=== PATIENT | male | born 2000 | race Two or more races ===

== ENCOUNTER 2024-12-30 21:13 | Emergency (ER) | payer MEDICAID, SELFPAY ==
[2024-12-30 21:50] VITALS: BP 120/75; PULSE 89; RESP 18; TEMP 36.9; O2SAT 97
--- NOTE | 2024-12-30 22:34 | PD.EDRME ---
Rapid Medical Screening Exam RME Arrival date/time: 12/30/24 21:13 Chief Complaint: Skin/Abscess/Foreign Body Time Seen by Provider: 12/30/24 22:11 Vital signs: Vital Signs Temperature 98.4 F 12/30/24 21:50 Pulse Rate 89 12/30/24 21:50 Respiratory Rate 18 12/30/24 21:50 Blood Pressure 120/75 12/30/24 21:50 Pulse Oximetry (%) 97 12/30/24 21:50 Oxygen Delivery Method Room Air 12/30/24 21:50 Vital signs reviewed by provider: Yes RME Narrative: 24-year-old male presents to the ED with a complaint of dehydration and rash. Patient states that he has been drinking water. He is feeling extreme fatigue and weakness. He states he is homeless and has not been drinking alcohol or doing any illicit drugs. He states he wanted to find a place to take a shower and to take a nap. On exam, patient has an altered mental status and has difficulty answering questions. I have greeted and performed a focused initial assessment of this patient. A comprehensive ED assessment and evaluation of the patient, analysis of all test results, and completion of the medical decision making process will be conducted by additional ED providers.
--- NOTE | 2024-12-30 22:36 | XR_ITS ---
Examination: PA chest single view TECHNIQUE: Upright PA chest single view Date and time: December 30, 2024, 11:13 PM INDICATIONS: Altered mental status weakness today. FINDINGS: Normal heart size. No aspiration pneumonia. Negative for pulmonary edema. Osseous structures are intact IMPRESSION: Negative for aspiration pneumonia
--- NOTE | 2024-12-30 22:36 | EKG_ITS ---
[facility] Test Date: 2024-12-30 Pat Name: BERTRAND COOPER Department: Room: - Gender: Male [employer] Operator: : 2000 Requested By: Anne Chandler Order Number: [id number] Reading MD: Anne Chandler Measurements Intervals [place] Rate: 89 P: 56 ID: [id number] QRS: 79 QRSD: 103 T: 39 QT: 340 QTc: 414 Interpretive Statements SINUS RHYTHM No previous ECG available for comparison /store/S0/[id number]/ecg/[id number].pdf
--- NOTE | 2024-12-30 22:36 | XR_ITS ---
Examination: CT brain head without contrast. 2-D sagittal coronal reconstructions Date and time of exam:December 30, 2024 1104 hours INDICATIONS: Altered mental status today CTDI: vol (mGy):50.7 DLP: (mGycm):989 Technique: Multiple CT axial sections of the brain have been obtained, 5 mm slice thickness. Contrast has not been administered. 2-D sagittal, coronal reconstructions have been obtained Low dose protocols were performed. One or more of the following dose reduction techniques were used; automated exposure control, adjustment of the mA and/or KV according to patient size, use of iterative reconstruction technique. Findings: No significant ventricular enlargement. Intra-axial or extra-axial hemorrhage density is not seen. No mass effect or midline shift Basal cisterns are not remarkable. Fourth ventricle is midline. Cranial vault intact. Impression: Negative for acute hemorrhage, mass effect or midline shift
[2024-12-30 23:25] LABS: Basophils # (Auto) 0.1 Thou/mm3 (0.0-0.2); Basophils % (Auto) 0 % (0-2.5); Eosinophils # (Auto) 0.6 Thou/mm3 (0.0-0.5); Eosinophils % (Auto) 5 % (0-10); Hematocrit 44.9 % (41.0-53.0); Hemoglobin 14.7 g/dL (13.5-16.0); Immature Granulocytes % (Auto) 0 % (0-0); Immature Granulocytes Auto 0.04 Thou/mm3 (0.00-0.00); Lymphocytes # (Auto) 3.2 Thou/mm3 (1.0-4.8); Lymphocytes % (Auto) 28 % (10-50); Mean Corpuscular HGB Conc 32.7 g/dl (31.0-37.0); Mean Corpuscular Hemoglobin 24.7 pg (25.0-35.0); Mean Corpuscular Volume 76 fL (80-100); Monocytes # (Auto) 0.9 Thou/mm3 (0.0-0.8); Monocytes % (Auto) 8 % (0-12); Neutrophils # (Auto) 6.5 Thou/mm3 (1.8-7.7); Neutrophils % (Auto) 58 % (37-80); Nucleated Red Blood Cell % 0 /100 WBC (0); Platelet Count 261 Thou/mm3 (140-440); RDW Standard Deviation 41.2 fL (35.1-43.9); Red Blood Count 5.94 Miln/mm3 (4.50-5.90); White Blood Count 11.3 Thou/mm3 (3.8-10.6)
[2024-12-30 23:56] LABS: Alanine Aminotransferase 38 U/L (10-49); Albumin, Serum 4.8 gm/dL (3.5-5.0); Alcohol, Blood Medical < 3.0 mg/dL (0-10.0); Alkaline Phosphatase 103 U/L (46-116); Amylase 32 U/L (30-118); Anion Gap 10 (7-16); Aspartate Amino Transferase 20 U/L (0-34); BUN/Creatinine Ratio 17 Ratio (12-20); Bilirubin,Total 0.3 mg/dL (0.3-1.2); Blood Urea Nitrogen 12 mg/dL (9-23); C-Reactive Protein < 0.5 mg/dL (0.0-0.9); Calcium 8.9 mg/dL (8.3-10.6); Calcium (Corrected) 8.9 mg/dL (8.5-10.1); Carbon Dioxide 27.6 mMol/L (20.0-31.0); Chloride 106 mMol/L (98-107); Creatine Kinase 93 U/L (34-171); Creatinine (Component) 0.7 mg/dL (0.6-1.3); Globulin 2.4 gm/dL (2.3-3.5); Glucose 79 mg/dL (74-106); Lipase 41 U/L (12-53); Osmolality,Calculated 285 (275-295); Sodium 144 mMol/L (136-145); Total Protein 7.2 gm/dL (5.7-8.2); Troponin I < 0.002 ng/mL (0.0-0.045); eGFR > 60 See Note
[2024-12-31] MEDS: SODIUM CHLORIDE 0.9% 1000 ML 1,000 ML 999 ML IV (01:22)
--- NOTE | 2024-12-31 01:25 | EDNOTE_ITS ---
ED Skin Abcess FB-RME/HPI General Chief complaint: Skin/Abscess/Foreign Body Stated complaint: RASH ON PRIVATE AREA Time Seen by Provider: 12/30/24 22:11 Arrival date/time: 12/30/24 21:13 RME / HPI RME / HPI narrative: 24-year-old male presents to the ED with a complaint of dehydration and rash. Patient states that he has been drinking water. He is feeling extreme fatigue and weakness. He states he is homeless and has not been drinking alcohol or doing any illicit drugs. He states he wanted to find a place to take a shower and to take a nap. On exam, patient has an altered mental status and has difficulty answering questions. I have greeted and performed a focused initial assessment of this patient. A comprehensive ED assessment and evaluation of the patient, analysis of all test results, and completion of the medical decision making process will be conducted by additional ED providers. Dr. Hong?s Main ED Evaluation: 24yo male with no significant past medical history presents to the ED for a chief complaint of a rash. Patient denies to provide any history aside from stating he has a rash and is not answering any further questions. Patient declined to be physically examined and is signing out AMA. Related Data Allergies Allergy/AdvReac Type Severity Reaction Status Date / Time No Known Allergies Allergy Verified 12/30/24 21:15 Review of Systems Review of Systems Systems Reviewed: All systems reviewed, normal except as documented Past Medical History Past Medical History CARDIAC: Negative Congestive Heart Failure RESPIRATORY: Negative Chronic Obstructive Pulmonary Disease (COPD) GENITOURINARY: Negative Renal Disease ENDOCRINE: Negative Diabetes Mellitus Type 1 or Diabetes Mellitus Type 2 Social History SMOKING STATUS: Former smoker ED Exam Narrative Physical exam: Patient refused to be examined. Course Quality Measures none Orders Category Date Time Status EKG (ED ONLY) *Do not use* NOW Care 12/30/24 22:36 Completed IV [Insert IV] STAT Care 12/31/24 01:20 Completed Miscellaneous Nursing Order NOW Care 12/31/24 01:25 Completed NPO STAT Care 12/30/24 22:[address] head/brain wo con Stat Exams 12/30/24 22:36 Completed EKG (ED Only) Stat Exams 12/30/24 22:36 Draft XR chest 1V portable Stat Exams 12/30/24 22:36 Completed Alcohol, Blood Medical Stat Lab 12/30/24 22:57 Completed Amylase Stat Lab 12/30/24 22:57 Completed Blood Culture (Lab) Stat Lab 12/30/24 23:02 Received CBC Stat Lab 12/30/24 23:02 Completed CK [Creatine Kinase] Stat Lab 12/30/24 22:57 Completed CRP [C-Reactive Protein] Stat Lab 12/30/24 22:57 Completed Comprehensive Metabolic Panel Stat Lab 12/30/24 22:57 Completed Lactic Acid [Lactate (Lactic Acid)] Stat Lab 12/30/24 23:02 Completed Lipase Stat Lab 12/30/24 22:57 Completed Troponin I Stat Lab 12/30/24 22:57 Completed Sodium Chloride 0.9% 1000 ml [Ns] 1,000 ml Med 12/30/24 22:42 Discontinued IV 999 mls/hr Vital Signs Vital signs: Vital Signs Temperature 98.4 F 12/30/24 21:50 Pulse Rate 89 12/30/24 21:50 Respiratory Rate 18 12/30/24 21:50 Blood Pressure 120/75 12/30/24 21:50 Pulse Oximetry (%) 97 12/30/24 21:50 Oxygen Delivery Method Room Air 12/30/24 21:50 Skin / Abscess / Foreign Body MDM Narrative MDM Narrative:: Scribe Attestation: 12/31/24 Leidy Leon am scribing for and in the presence of Dr. Hong. Patient refused to provide a history or allow me to perform a physical examination. Patient is AAOx4 and is signing out against medical advice. Patient data External records reviewed:: [facility] [place] (Per chart review, patient has no previous ED visits or admissions to this facility.) Clinical information provided by:: patient Social determinants that could affect healthcare access:: none Patient has the following chronic illnesses:: none How is presenting disease/condition affected by chronic disease/condition?: no chronic disease Evaluation data The following diagnostics were reviewed and interpreted by me:: lab results and radiology exam(s) Lab and/or radiology exams considered but not ordered:: none Interpretation Summary: WBC 11.3, CMP normal, Lactic Acid normal, Troponin normal, CRP normal, Blood Alcohol negative. EKG done at 2243, NSR, rate of 89, normal axis, no ectopy, no acute ischemia, according to my interpretation. [facility] Report Signed Patient: BERTRAND COOPER. Record#: [id number] Birthdate: 2000 Age/Sex: 24 / M Location: [facility] Attending Dr: Ordering Physician: Anne Flores PA-C Date of Service: 12/30/24 Procedure(s): XR chest 1V portable Accession Number(s): [id number] cc: Stanley Mcpherson MD; NO PRIMARY/FAMILY,PHYSICIAN; Anne Flores PA-C~ Examination: PA chest single view TECHNIQUE: Upright PA chest single view Date and time: December 30, 2024, 11:13 PM INDICATIONS: Altered mental status weakness today. FINDINGS: Normal heart size. No aspiration pneumonia. Negative for pulmonary edema. Osseous structures are intact IMPRESSION: Negative for aspiration pneumonia Dictated By: Stanley Mcpherson MD Signed By: <Electronically signed by Stanley Mcpherson MD in > 12/30/24 2355 [facility] Report Signed Patient: BERTRAND COOPER. Record#: [id number] Birthdate: 2000 Age/Sex: 24 / M Location: [facility] Attending Dr: Ordering Physician: Anne Flores PA-C Date of Service: 12/30/24 Procedure(s): CT head/brain wo con Accession Number(s): [id number] cc: Stanley Mcpherson MD; NO PRIMARY/FAMILY,PHYSICIAN; Anne Flores PA-C~ Examination: CT brain head without contrast. 2-D sagittal coronal reconstructions Date and time of exam:December 30, 2024 1104 hours INDICATIONS: Altered mental status today CTDI: vol (mGy):50.7 DLP: (mGycm):989 Technique: Multiple CT axial sections of the brain have been obtained, 5 mm slice thickness. Contrast has not been administered. 2-D sagittal, coronal reconstructions have been obtained Low dose protocols were performed. One or more of the following dose reduction techniques were used; automated exposure control, adjustment of the mA and/or KV according to patient size, use of iterative reconstruction technique. Findings: No significant ventricular enlargement. Intra-axial or extra-axial hemorrhage density is not seen. No mass effect or midline shift Basal cisterns are not remarkable. Fourth ventricle is midline. Cranial vault intact. Impression: Negative for acute hemorrhage, mass effect or midline shift Dictated By: Stanley Mcpherson MD Signed By: <Electronically signed by Stanley Mcpherson MD in OV> 12/30/24 6682 Medications / Prescriptions Medications or Prescriptions considered but not ordered:: none Medication administrations:: Medication Administration History Discontinued Medications Sodium Chloride (Ns) 1,000 mls @ 999 mls/hr IV .Q1H1M ONE Stop: 12/30/24 23:42 Last Infusion: 12/31/24 01:27 Dose: 0 mls/hr Documented By: Admin: 12/31/24 01:22 Dose: 999 mls/hr Documented By: CB none Consultations Consultation(s) initiated? (list below): No Diagnosis Skin/Abscess Differential Diagnosis: other (tinea cruris, scabies, shingles, pediculosis pubis) Most likely diagnosis given after review of the tests above:: AMA Admission Indicated Admission indicated?: not indicated Admission Request Was there a request for admission?: No Disposition Plan Disposition Plan: other (specify) (Patient signed out AMA.) Discharge Plan Plan Patient Disposition: Left Against Medical Advice Discharge Disposition comment: AGAINST MEDICAL ADVICE Patient condition on transfer: Stable Prescriptions/Referrals Referrals: [facility] [Provider Group] - In 1 week Problem List Clinical Impression: Left against medical advice Patient/Caregiver Discharge Instructions Discharge Activity: activity as tolerated Additional Instructions: Just because you are leaving the hospital AGAINST MEDICAL ADVICE does not mean that you cannot come back at any time. Please return to the ER when you are ready to allow us to perform an exam and when you are ready to tell me about the details of why you came here. Print Language: Welsh
--- NOTE | 2024-12-31 01:26 | PC.NURSE ---
PATIENT REFUSED TO HAVE DR. BARTON TO PERFORM A MEDICAL ASSESSMENT. PATIENT IS LEAVING AGAINST MEDICAL ADVICE, BUT REFUSED TO SIGN AMA FORM.
== END 2024-12-31 01:28 | disposition left against medical advice (07) ==
PROVIDERS: Physician Assistant; Emergency Provider Emergency Medicine
DX: E86.0 Dehydration (principal); R21 Rash and other nonspecific skin eruption; Z59.00 Homelessness unspecified; R41.82 Altered mental status, unspecified; Z53.29 Procedure and treatment not carried out because of patient's decision for other reasons
CPT/HCPCS: 36415; 70450; 71045; 80053; 80307; 80320; 81001; 82150; 82550; 83605; 83690; 84484; 85025; 86140; 87040; 87086; 93005; 99284; J7030; G0480

== ENCOUNTER 2025-02-27 14:48 | Emergency (ER) | payer MEDICAID, SELFPAY ==
[2025-02-27 15:08] VITALS: BP 126/81; PULSE 89; RESP 20; TEMP 37; O2SAT 97; BMI 35.5
--- NOTE | 2025-02-27 15:18 | EDRME_ITS ---
Rapid Medical Screening Exam RME Arrival date/time: 02/27/25 14:48 Chief Complaint: Nausea/Vomiting/Diarrhea Vital signs: Vital Signs Temperature 98.6 F 02/27/25 15:08 Pulse Rate 89 02/27/25 15:08 Respiratory Rate 20 02/27/25 15:08 Blood Pressure 126/81 02/27/25 15:08 Pulse Oximetry (%) 97 02/27/25 15:08 Oxygen Delivery Method Room Air 02/27/25 15:08 Pulse ox room air 97% Vital signs reviewed by provider: Yes RME Narrative: Patient exposed to the heat and had been walking around exposed to the sun for hours today. Patient was seen at [facility] yesterday and was discharged without treatment.
[2025-02-27] MEDS: IBUPROFEN TAB 600 MG TABLET PO (15:31)
[2025-02-27] MEDS: ONDANSETRON ODT 4 MG TABRAP PO (15:31)
[2025-02-27 15:46] LABS: Collection Type, Urine Clean Catch
[2025-02-27 15:49] LABS: Basophils # (Auto) 0.1 Thou/mm3 (0.0-0.2); Basophils % (Auto) 1 % (0-2.5); Eosinophils # (Auto) 0.4 Thou/mm3 (0.0-0.5); Eosinophils % (Auto) 4 % (0-10); Hematocrit 48.4 % (41.0-53.0); Hemoglobin 15.4 g/dL (13.5-16.0); Immature Granulocytes Auto 0.06 Thou/mm3 (0.00-0.00); Lymphocytes # (Auto) 1.8 Thou/mm3 (1.0-4.8); Lymphocytes % (Auto) 17 % (10-50); Mean Corpuscular HGB Conc 31.8 g/dl (31.0-37.0); Mean Corpuscular Hemoglobin 25.1 pg (25.0-35.0); Mean Corpuscular Volume 79 fL (80-100); Monocytes # (Auto) 1.0 Thou/mm3 (0.0-0.8); Monocytes % (Auto) 9 % (0-12); Neutrophils # (Auto) 7.4 Thou/mm3 (1.8-7.7); Neutrophils % (Auto) 69 % (37-80); Nucleated Red Blood Cell # 0.00 Thou/mm3 (0.00-0.00); Nucleated Red Blood Cell % 0 /100 WBC (0); Platelet Count 283 Thou/mm3 (140-440); RDW Standard Deviation 44.2 fL (35.1-43.9); Red Blood Count 6.13 Miln/mm3 (4.50-5.90); White Blood Count 10.8 Thou/mm3 (3.8-10.6)
[2025-02-27 15:53] LABS: Bilirubin,Urine Negative (Negative); Blood,Urine Negative (Negative); Clarity,Urine Clear (Clear/Hazy); Color,Urine Yellow (Lt Yel-Yel); Glucose, Urine Negative (Negative); Ketones,Urine Negative (Negative); Leukocyte Esterase,Urine Negative (Negative); Nitrite,Urine Negative (Negative); PH,Urine 5.5 (5.0-7.0); Protein,Urine Trace (Neg - Trace); RBC,Urine 1 /hpf (0-3); Specific Gravity,Urine 1.039 (1.001-1.035); Squamous Epithelial Cell,Urine < 1 /hpf (0-5); Urobilinogen,Urine Negative mg/dL (0.0-1.0); WBC,Urine 1 /hpf (0-5)
[2025-02-27 16:11] LABS: Alanine Aminotransferase 127 U/L (10-49); Albumin, Serum 4.7 gm/dL (3.5-5.0); Albumin/Globulin Ratio 1.7 (1.2-2.2); Alkaline Phosphatase 95 U/L (46-116); Anion Gap 7 (7-16); Aspartate Amino Transferase 57 U/L (0-34); BUN/Creatinine Ratio 12 Ratio (12-20); Bilirubin,Total 0.4 mg/dL (0.3-1.2); Blood Urea Nitrogen 11 mg/dL (9-23); Calcium 8.8 mg/dL (8.3-10.6); Calcium (Corrected) 8.8 mg/dL (8.5-10.1); Carbon Dioxide 29.2 mMol/L (20.0-31.0); Chloride 106 mMol/L (98-107); Creatinine (Component) 0.9 mg/dL (0.6-1.3); Estimated Creatinine Clearance 127.4 mL/min (>60); Globulin 2.7 gm/dL (2.3-3.5); Glucose 50 mg/dL (74-106); Osmolality,Calculated 279 (275-295); Potassium 3.7 mMol/L (3.4-5.1); Sodium 142 mMol/L (136-145); Total Protein 7.4 gm/dL (5.7-8.2); eGFR > 60 See Note
--- NOTE | 2025-02-27 16:42 | EDNOTE_ITS ---
ED Headache RME/HPI General Chief Complaint: Nausea/Vomiting/Diarrhea Stated Complaint: DEHYDRATED, BEEN OUT IN THE SUN , NAUSEA, H/A Time Seen by Provider: 02/27/25 16:32 Arrival date/time: 02/27/25 14:48 RME / HPI RME / HPI Narrative: Patient exposed to the heat and had been walking around exposed to the sun for hours today. Patient was seen at [facility] [address] yesterday and was discharged without treatment. Patient denies any vomiting denies any other complaints patient is ambulatory. Related Data Allergies Allergy/AdvReac Type Severity Reaction Status Date / Time No Known Allergies Allergy Verified 02/27/25 14:52 Review of Systems Review of Systems Narrative Review of Systems: Review of system reviewed and within normal limits except mentioned in HPI ED Exam Narrative Physical exam: VITAL SIGNS: Reviewed. GENERAL APPEARANCE: Alert and interactive, follows commands, no acute distress, HEAD AND FACE: Non-traumatic. ENT: PERRL, pink conjunctivitis, eyelid no trauma, Mucous membrane moist. NECK: Supple, nontender, no nuchal rigidity. CHEST: No tenderness, no crepitus, no paradoxical movement, no retractions. LUNGS: Clear, well ventilated, symmetric, no rales, no wheezing, no ronchi, no stridor, good breath sounds bilaterally. HEART: Regular rate, regular rhythm, no murmur, no gallops. ABDOMEN: Soft, positive bowel sounds, nondistended, no guarding, nontender, no rebound, no masses, RECTAL: Deferred. GENITAL: Deferred. NEUROLOGICAL: Gross motor function intact sensory function intact, Appropriate for age. MUSCULOSKELETAL: low back nontender, full range of motion. EXTREMITIES: Nontender, full range of motion. SKIN: Color pink, dry, no rash, no lacerations, no abrasions, no contusions. LYMPHATICS: Deferred. Course Quality Measures none Orders Category Date Time Status CBC Stat Lab 02/27/25 15:34 Completed Comprehensive Metabolic Panel Stat Lab 02/27/25 15:34 Completed Urinalysis Stat Lab 02/27/25 15:36 Completed Dextrose 50% Syr [D50w Syringe Abboject] Med 02/27/25 16:43 Discontinued 50 ml IVP X1 ONE Ibuprofen Tab [Motrin Tab] Med 02/27/25 15:20 Discontinued 600 mg PO X1 ONE Ondansetron Odt [Zofran Odt] Med 02/27/25 15:20 Discontinued 4 mg PO X1 ONE Sodium Chloride 0.9% 1000 ml [Ns] 1,000 ml Med 02/27/25 16:46 Discontinued IV 999 mls/hr Vital Signs Vital signs: Vital Signs Temperature 98.6 F 02/27/25 15:08 Pulse Rate 89 02/27/25 15:08 Respiratory Rate 20 02/27/25 15:08 Blood Pressure 126/81 02/27/25 15:08 Pulse Oximetry (%) 97 02/27/25 15:08 Oxygen Delivery Method Room Air 02/27/25 15:08 Headache MDM Narrative [facility] Narrative:: Patient exposed to the heat and had been walking around exposed to the sun for hours today. Patient was seen at [facility] [address] yesterday and was discharged without treatment. Patient denies any vomiting denies any other complaints patient is ambulatory. Patient workup today all came back unremarkable except for blood sugar of 50. Patient was given orange juice, sandwich. There is no need to give IV D50 water since patient is alert and not vomiting and tolerating p.o. supplements. Patient was given a jug of ice water with the patient was tolerating well. No vomiting noted patient stable for discharge home. Patient had no history of diabetes mellitus. Patient data External records reviewed:: None Clinical information provided by:: none Social determinants that could affect healthcare access:: none Patient has the following chronic illnesses:: Homelessness How is presenting disease/condition affected by chronic disease/condition?: no chronic disease Evaluation data The following diagnostics were reviewed and interpreted by me:: lab results Lab and/or radiology exams considered but not ordered:: None Interpretation Summary: See results [facility] Medications / Prescriptions Medications or Prescriptions considered but not ordered:: None Medication administrations:: Medication Administration History Discontinued Medications Dextrose (Dextrose 50%-Water Inj 50 Ml Syringe) 50 ml IVP X1 ONE Stop: 02/27/25 16:44 Last Admin: 02/27/25 17:04 Dose: Not Given Documented By: Non-Admin Reason: Cancelled by Provider Sodium Chloride (Ns) 1,000 mls @ 999 mls/hr IV .Q1H1M ONE Stop: 02/27/25 17:46 Last Admin: 02/27/25 17:04 Dose: Not Given Documented By: Non-Admin Reason: Cancelled by Provider Ibuprofen (Ibuprofen Tab 600 Mg Tablet) 600 mg PO X1 ONE Stop: 02/27/25 15:21 Last Admin: 02/27/25 15:31 Dose: 600 mg Documented By: LUZ MARIA Ondansetron HCl (Ondansetron Odt 4 Mg Tabrap) 4 mg PO X1 ONE; Protocol Stop: 02/27/25 15:21 Last Admin: 02/27/25 15:31 Dose: 4 mg Documented By: LUZ MARIA Zoan and Motpricila Consultations Consultation(s) initiated? (list below): No Diagnosis Differential diagnosis headache: other (Dehydration, heat exhaustion, homelessness) Most likely diagnosis given after review of the tests above:: Heat exhaustion Admission Indicated Admission indicated?: not indicated Admission Request Was there a request for admission?: No Disposition Plan Disposition Plan: Discharge Discharge Attestation Discharge Attestation: The patient and all family members were given an opportunity to ask questions and understood the discharge instructions. Discharge instructions specifically effects, indications for sooner follow up or return to the emergency department, and the expected course of current diagnosis. Patient condition: Stable Discharge Plan Plan Patient Disposition: HOME (Self Care) Discharge Disposition comment: Stable Patient condition on transfer: Stable Prescriptions/Referrals Referrals: No Primary/Family,Physician [Primary Care Provider] - In 1 week Problem List Clinical Impression: Heat exhaustion Patient/Caregiver Discharge Instructions Discharge Activity: activity as tolerated Education Materials: ED Heat Exhaustion Additional Instructions: Thank you for the opportunity for serving you today. You are stable for discharged . You are advised to: Follow-up with your PCP in 1 to 2 days Return to ED for worsening of symptoms Increase oral fluids Print Language: Yoruba Stand Alone Forms: Deepika Award Info., Patient Portal Info Letter EMBER/IVON Supervising Physician EMBER/IVON Supervising Physician: MD Jordon
--- NOTE | 2025-02-27 16:47 | EDNOTE_ITS ---
Nausea/Vomit./Diarrhea-RME/HPI General Chief complaint: Nausea/Vomiting/Diarrhea Stated complaint: DEHYDRATED, BEEN OUT IN THE SUN , NAUSEA, H/A Time Seen by Provider: 02/27/25 16:32 Source: patient Arrival date/time: 02/27/25 14:48 Mode of arrival: ambulatory Limitations: no limitations RME / HPI RME / HPI Narrative: Patient exposed to the heat and had been walking around exposed to the sun for hours today. Patient was seen at [facility] yesterday and was discharged without treatment. Patient denies any vomiting denies any other complaints patient is ambulatory. MD complaint: nausea and vomiting Onset (ago): day(s) (1 DAY IN THE SUN.) Severity scale (1-10): 5 Related Data Allergies Allergy/AdvReac Type Severity Reaction Status Date / Time No Known Allergies Allergy Verified 02/28/25 23:52 Review of Systems Constitutional Constitutional: Reports system reviewed and no additional complaints, except as documented Eyes Eyes: Reports system reviewed and no additional complaints, except as documented, Denies dry eyes, Denies exophthalmos and Reports floaters Cardiovascular Cardiovascular: Denies chest pain with activity and Denies claudication ED Exam Narrative Physical exam: Patient is in no apparent distress respiratory or otherwise General Limitations: Present no limitations General appearance: Present alert and in no apparent distress Head Head exam: Present atraumatic Eye Eye exam: Present normal appearance and EOMI ENT ENT exam: Present normal exam, normal oropharynx and mucous membranes moist Neck Neck exam: Present normal inspection, full ROM and trachea midline Chest Chest inspection: Present normal inspection and symmetric chest wall rise Respiratory Respiratory exam: Present normal lung sounds bilaterally Cardiovascular Cardiovascular exam: Present regular rate, normal rhythm and normal heart sounds Abdominal Exam Abdominal exam: Present soft and normal bowel sounds Extremities Exam Extremities exam: Present normal inspection and full ROM Back Exam Back exam: Present normal inspection and full ROM Neurological Exam Neurological exam: Present alert and oriented X3 Psychiatric Psychiatric exam: Present normal affect and normal mood Skin Skin exam: Present warm, dry, intact and normal color Course Course Course Narrative: Patient will have D5W, will also have 1 L of SODIUM CHLORIDE, CBC, CMP, UA, Zofr an 4 mg p.o., ibuprofen 600 mg p.o. times once Quality Measures none (NA) Orders Category Date Time Status CBC Stat Lab 02/27/25 15:34 Completed Comprehensive Metabolic Panel Stat Lab 02/27/25 15:34 Completed Urinalysis Stat Lab 02/27/25 15:36 Completed Dextrose 50% Syr [D50w Syringe Abboject] Med 02/27/25 16:43 Discontinued 50 ml IVP X1 ONE Ibuprofen Tab [Motrin Tab] Med 02/27/25 15:20 Discontinued 600 mg PO X1 ONE Ondansetron Odt [Zofran Odt] Med 02/27/25 15:20 Discontinued 4 mg PO X1 ONE Sodium Chloride 0.9% 1000 ml [Ns] 1,000 ml Med 02/27/25 16:46 Discontinued IV 999 mls/hr ORDERED Vital Signs Vital signs: Vital Signs Temperature 98.6 F 02/27/25 15:08 Pulse Rate 89 02/27/25 15:08 Respiratory Rate 20 02/27/25 15:08 Blood Pressure 126/81 02/27/25 15:08 Pulse Oximetry (%) 97 02/27/25 15:08 Oxygen Delivery Method Room Air 02/27/25 15:08 Pulse ox room air 97% Nausea/Vomiting/Diarrhea MDM Narrative MDM Narrative:: Patient will be discharged in no apparent distress after having normal saline and D5W. He is to avoid the sunlight possible and he has to follow-up with a primary care physician. Patient data External records reviewed:: Other (specify) (NA) Clinical information provided by:: none (NA) Social determinants that could affect healthcare access:: none (NA) Patient has the following chronic illnesses:: NONE How is presenting disease/condition affected by chronic disease/condition?: no chronic disease (NA) Evaluation data The following diagnostics were reviewed and interpreted by me:: lab results (Lab results reviewed) Lab and/or radiology exams considered but not ordered:: Lab results revealed 50 mg/dL of serum glucose Interpretation Summary: NA Medications / Prescriptions Medications / Prescriptions considered but not ordered:: NA Medication administrations:: Medication Administration History Discontinued Medications Dextrose (Dextrose 50%-Water Inj 50 Ml Syringe) 50 ml IVP X1 ONE Stop: 02/27/25 16:44 Last Admin: 02/27/25 17:04 Dose: Not Given Documented By: Non-Admin Reason: Cancelled by Provider Sodium Chloride (Ns) 1,000 mls @ 999 mls/hr IV .Q1H1M ONE Stop: 02/27/25 17:46 Last Admin: 02/27/25 17:04 Dose: Not Given Documented By: Non-Admin Reason: Cancelled by Provider Ibuprofen (Ibuprofen Tab 600 Mg Tablet) 600 mg PO X1 ONE Stop: 02/27/25 15:21 Last Admin: 02/27/25 15:31 Dose: 600 mg Documented By: LUZ MARIA Ondansetron HCl (Ondansetron Odt 4 Mg Tabrap) 4 mg PO X1 ONE; Protocol Stop: 02/27/25 15:21 Last Admin: 02/27/25 15:31 Dose: 4 mg Documented By: LUZ MARIA NA Consultations Consultation(s) initiated? (list below): No Consultation #1 (Physician, Specialty, Details): NA Diagnosis Nausea Differential Diagnosis: food poisoning, gastroenteritis, clostridium difficile infection and drug-induced nausea and vomiting Most likely diagnosis given after review of the tests above:: HEAT EXHAUSTION Admission Indicated Admission indicated?: not indicated Admission Request Was there a request for admission?: No Disposition Plan Disposition Plan: Discharge Discharge Attestation Discharge Attestation: The patient and all family members were given an opportunity to ask questions and understood the discharge instructions. Discharge instructions specifically effects, indications for sooner follow up or return to the emergency department, and the expected course of current diagnosis. Patient condition: Stable Discharge Plan Plan Patient Disposition: HOME (Self Care) Discharge Disposition comment: Stable Patient condition on transfer: Stable Prescriptions/Referrals Referrals: No Primary/Family,Physician [Primary Care Provider] - In 1 week Problem List Clinical Impression: Heat exhaustion Patient/Caregiver Discharge Instructions Discharge Activity: activity as tolerated Education Materials: ED Heat Exhaustion Additional Instructions: Thank you for the opportunity for serving you today. You are stable for discharged . You are advised to: Follow-up with your PCP in 1 to 2 days Return to ED for worsening of symptoms Increase oral fluids Print Language: Bolivian Stand Alone Forms: Deepika Award Info., Patient Portal Info Letter EMBER/IVON Supervising Physician EMBER/IVON Supervising Physician: MD Jordon
--- NOTE | 2025-02-27 17:14 | PC.NURSE ---
Pt was given a meal and simple carbs, orange juice bs recheck was 85 prior dc. Pt was given more snacks and orange juice to go
== END 2025-02-27 17:20 | disposition home or self-care (01) ==
PROVIDERS: Physician Assistant; Emergency Provider Family Medicine
DX: T67.5XXA Heat exhaustion, unspecified, initial encounter (principal); X58.XXXA Exposure to other specified factors, initial encounter
CPT/HCPCS: 36415; 80053; 81001; 85025; 99283; Q0162; A9270

== ENCOUNTER 2025-02-28 23:46 | Emergency (ER) | payer MEDICAID, SELFPAY ==
[2025-02-28 23:47] VITALS: BMI 25.6
[2025-02-28 23:52] VITALS: BP 117/63; PULSE 98; RESP 18; TEMP 36.7; O2SAT 96
--- NOTE | 2025-03-01 03:09 | EDNOTE_ITS ---
ED Recheck Abnl Lab Rx-RME/HPI General Chief Complaint: General Adult/Misc Complain Stated Complaint: HEADACH MULTIPLD COMPLAINTS Time Seen by Provider: 03/01/25 02:58 Arrival date/time: 02/28/25 23:46 24M with history of homelessness presents to ED wanting some food and iced water. Limitations: no limitations Related Data Allergies Allergy/AdvReac Type Severity Reaction Status Date / Time No Known Allergies Allergy Verified 02/28/25 23:52 Review of Systems Review of Systems Systems Reviewed: All systems reviewed, normal except as documented Constitutional Constitutional: Reports system reviewed and no additional complaints, except as documented, Denies fever(s) and Denies headache(s) ENT Ears, Nose, Mouth, and Throat: Denies disequilibrium and Denies headache(s) Cardiovascular Cardiovascular: Reports system reviewed and no additional complaints, except as documented, Denies chest pain and Denies dyspnea Respiratory Respiratory: Reports system reviewed and no additional complaints, except as documented, Denies cough and Denies dyspnea Gastrointestinal Gastrointestinal: Reports system reviewed and no additional complaints, except as documented, Denies abdominal pain, Denies nausea and Denies vomiting Neurologic Neurologic: Reports system reviewed and no additional complaints, except as documented, Denies confusion, Denies disequilibrium and Denies headache(s) Psychiatric Psychiatric: Denies confusion Past Medical History Past Medical History CARDIAC: Negative Congestive Heart Failure RESPIRATORY: Negative Chronic Obstructive Pulmonary Disease (COPD) GENITOURINARY: Negative Renal Disease ENDOCRINE: Negative Diabetes Mellitus Type 1 or Diabetes Mellitus Type 2 Social History SMOKING STATUS: Never smoker ED Exam General Limitations: Present no limitations General appearance: Present alert and in no apparent distress Head Head exam: Present atraumatic Eye Eye exam: Present normal appearance, PERRL and EOMI ENT ENT exam: Present normal exam, normal oropharynx and mucous membranes moist Neck Neck exam: Present normal inspection, full ROM and trachea midline Chest Chest inspection: Present normal inspection and symmetric chest wall rise Respiratory Respiratory exam: Present normal lung sounds bilaterally Cardiovascular Cardiovascular exam: Present regular rate, normal rhythm and normal heart sounds Abdominal Exam Abdominal exam: Present soft and normal bowel sounds Extremities Exam Extremities exam: Present normal inspection and full ROM Back Exam Back exam: Present normal inspection and full ROM Neurological Exam Neurological exam: Present alert, oriented X3 and CN II-XII intact Psychiatric Psychiatric exam: Present normal affect and normal mood Skin Skin exam: Present warm, dry, intact and normal color Course Quality Measures none Vital Signs Vital signs: Vital Signs Temperature 98.1 F 02/28/25 23:52 Pulse Rate 98 02/28/25 23:52 Respiratory Rate 18 02/28/25 23:52 Blood Pressure 117/63 02/28/25 23:52 Pulse Oximetry (%) 96 02/28/25 23:52 Oxygen Delivery Method Room Air 02/28/25 23:52 O2 at 96% on RA and WNLs Recheck / Abnormal Lab / Rx MDM Narrative MDM Narrative:: 24M with history of homelessness presents to ED wanting some food and iced water. Physical exam reveals male in acute distress. Patient is afebrile, calm, and sleeping. Food/water given. Patient data External records reviewed:: [facility] previous records Clinical information provided by:: patient Social determinants that could affect healthcare access:: housing Patient has the following chronic illnesses:: homelessness How is presenting disease/condition affected by chronic disease/condition?: caused by Evaluation data The following diagnostics were reviewed and interpreted by me:: other (specify) (none) Lab and/or radiology exams considered but not ordered:: not ordered Interpretation Summary: n/a Medications / Prescriptions Medications or Prescriptions considered but not ordered:: not ordered Medication administrations:: n/a Consultations Consultation(s) initiated? (list below): No Diagnosis Recheck Differential Diagnosis: encounter for medication refill, encounter for wound recheck, encounter for recheck of burn, encounter for removal of sutures, warfarin-induced coagulopathy and other (hungry) Most likely diagnosis given after review of the tests above:: hungry Admission Indicated Admission indicated?: not indicated Admission Request Was there a request for admission?: No Disposition Plan Disposition Plan: Discharge Discharge Attestation Discharge Attestation: The patient and all family members were given an opportunity to ask questions and understood the discharge instructions. Discharge instructions specifically effects, indications for sooner follow up or return to the emergency department, and the expected course of current diagnosis. Patient condition: Stable Discharge Plan Plan Patient Disposition: HOME (Self Care) Discharge Disposition comment: Stable Prescriptions/Referrals Referrals: No Primary/Family,Physician [Primary Care Provider] - In 1 week Problem List Clinical Impression: Hungry Patient/Caregiver Discharge Instructions Additional Instructions: Please follow-up with PCP within 24-48 hours and return immediately if symptoms worsen. Print Language: Burundian Stand Alone Forms: Patient Portal Info Letter PA/CHARITY FUNDRAISER Supervising Physician PA/CHARITY FUNDRAISER Supervising Physician: Dr. De Jesus
== END 2025-03-01 03:56 | disposition home or self-care (01) ==
PROVIDERS: Emergency Provider Emergency Medicine
DX: T73.0XXA Starvation, initial encounter (principal); X58.XXXA Exposure to other specified factors, initial encounter; Z59.00 Homelessness unspecified
CPT/HCPCS: 99282